=== PATIENT | female | born 1965 | race Asian ===

== ENCOUNTER 2017-04-14 09:01 | Emergency (ER) | payer OTHER ==
[~2017-04-14] VITALS: Ht 165.1 cm; Wt 68.2 kg
[2017-04-14] MEDS ORDERED: TraMADol HCL 50 MG TABLET PO ONE (10:15)
[2017-04-14 10:23] VITALS: BP 142/85
== END 2017-04-14 10:38 | disposition home or self-care (01) ==
LOC: EMS 09:06
DX: T63.301A Toxic effect of unspecified spider venom, accidental (unintentional), initial encounter (principal); L03.115 Cellulitis of right lower limb; W57.XXXA Bitten or stung by nonvenomous insect and other nonvenomous arthropods, initial encounter; Y93.89 Activity, other specified; Y92.89 Other specified places as the place of occurrence of the external cause; Y99.9 Unspecified external cause status
CPT/HCPCS: 99283